=== PATIENT | male | born 1985 | race Caucasian/White ===

== ENCOUNTER 2023-07-27 19:23 | Emergency (ER) | payer OTHER, SELFPAY ==
[2023-07-27 19:24] VITALS: BP 120/74; PULSE 77; RESP 16; TEMP 36.3; O2SAT 100; BMI 30.5
--- NOTE | 2023-07-27 19:42 | RAD_ITS ---
STUDY: X-RAY - UNILATERAL RIBS ( LEFT ) WITH CHEST REASON FOR EXAM: Male, 37 years old. fall TECHNIQUE - RIBS: 5 view(s) of the ribs. TECHNIQUE - CHEST: PA COMPARISON: None. FINDINGS - RIBS: Normal visualized ribs without a demonstrated fracture. FINDINGS - CHEST: The lungs are clear and expanded. There is no demonstrated pleural abnormality. Normal size heart. Normal mediastinum and sylvie. Normal visualized pulmonary arteries. Normal visualized aortic arch and descending thoracic aorta. Normal visualized thoracic spine. Normal visualized ribs,, and shoulders. Mild left AC joint subluxation There is no demonstrated abnormality of the visualized soft tissue structures of the upper abdomen. RAD/Ribs Uni Min 3V w/PA Chest IMPRESSION: RIBS: Normal x-ray examination of the ribs. CHEST: Mild left AC joint subluxation. No acute cardiopulmonary pathology Electronically Signed: Sage Bridges MD at 20:19 EDT ,
--- NOTE | 2023-07-27 19:42 | RAD_ITS ---
STUDY: X-RAY - LEFT CLAVICLE REASON FOR EXAM: Male, 37 years old. fall TECHNIQUE: 2 view(s) of the clavicle. COMPARISON: None. FINDINGS: Normal clavicle. There is subluxation of the AC joint with widening of the coracoclavicular space which may be consistent with ligamentous injury.. This may be further assessed with MRI if indicated Normal visualized sternoclavicular articulation. Normal visualized pulmonary apex. RAD/Clavicle IMPRESSION: AC joint subluxation. Electronically Signed: Sage Bridges MD at 20:15 EDT ,
--- NOTE | 2023-07-27 22:13 | EDS_ITS ---
HPI History of Present Illness Chief Complaint: Upper Extremity Injury Informant: patient Narrative Narrative: Patient was thrown off of a horse, landing he thinks on his left side somehow. He complains of pain mostly in his left shoulder, he had some soreness in his left chest wall as well but it is not hurting as bad now. Denies any significant discomfort with taking breaths nor with movement and no dyspnea. He denies pain elsewhere. No loss of consciousness, nausea, vomiting, headache, vision change. PFSH PFSH Medical History Bacterial pneumonia Allergy/AdvReac Type Severity Reaction Status Date / Time No Known Allergies Allergy Verified 07/27/23 19:23 Surgical History (Updated 07/27/23 @ 22:10 by Deidre Javier) Hx of appendectomy Social History Smoking Status: Current every day smoker tobacco type: cigarettes ROS ROS ED Constitutional Constitutional ED: Denies chills or fever(s) Eyes Eyes: Denies change in vision or diplopia Cardiovascular Cardiovascular: Reports other Details: Left rib cage pain ; Denies chest pain Respiratory/Chest Respiratory/Chest: Denies dyspnea Gastrointestinal Gastrointestinal: Denies abdominal pain, nausea or vomiting Musculoskeletal Musculoskeletal: Reports extremity pain; Denies neck pain Integumentary Denies Abrasions, rash or wounds Neurologic Neurologic: Denies headache(s), paresthesias or weakness EXAM Physical Exam Const Vital Signs: 07/27/23 19:24 Temperature 97.3 F L Temperature Source Temporal Pulse Rate 77 Respiratory Rate 16 Blood Pressure 120/74 Blood Pressure Mean 89 Pulse Ox 100 Positive well nourished and well developed General Appearance ED: well developed and NAD HEENT normocephalic and atraumatic Eyes PERRL and EOMs intact bilaterally Neck full ROM and supple General: Negative for tenderness Chest Wall inspection of chest normal and palpation of chest normal Resp normal respiratory effort and clear to auscultation bilaterally Resp Narrative: Equal breath sounds bilateral Cardio regular rate, regular rhythm and no murmurs Rate: Negative for tachycardic Back/Spine normal ROM and normal to inspection Back/Spine Narrative: Mild tenderness in the left mid-low lateral rib cage without crepitance, step- off, flail. Extremity Extremity Narrative: Left shoulder minor deformity with elevation of the distal/lateral clavicle and tenderness there at the acromioclavicular joint. There is no gross instability of the clavicle here on exam. Limited range of motion of the shoulder due to pain, no proximal humeral tenderness. He has good range of motion without tenderness or signs of injury to the elbow, wrist, hand, and the other 3 extremities. There is no tenderness at the rest of the clavicle including the sternoclavicular joint. Neuro oriented x3, no focal motor deficits and no sensory deficits noted Sensorium / Orientation: alert Psych mental status grossly normal and thought process normal Skin no wounds Rashes: no rashes MDM MDM MDM Narrative Medical decision making narrative: 5 view x-ray series of the left rib cage with PA chest negative on my interpretation for any fracture or pneumothorax, radiology was in agreement. With regards to his left shoulder, 2 view x-ray of the clavicle was obtained and on my interpretation does show no fracture but there is elevation of the lateral clavicle consistent with a shoulder separation. Radiology was in agreement. Clinically this is more consistent with a type II injury, although I am not doing stress films here in the ER. Patient declines analgesics and is okay with a sling and [id number] medications and following up with orthopedics as an outpatient. Radiography Diagnostic Testing: Clinical Impression(s) from Imaging Studies Clavicle X-Ray 07/27/23 19:42 IMPRESSION: AC joint subluxation. Electronically Signed: Sage Bridges MD at 20:15 EDT , Ribs w/Chest X-Ray 07/27/23 19:42 IMPRESSION: RIBS: Normal x-ray examination of the ribs. CHEST: Mild left AC joint subluxation. No acute cardiopulmonary pathology Electronically Signed: Sage Bridges MD at 20:19 EDT , Discharge Plan Triage Chief Complaint: Upper Extremity Injury ED Provider: Jose Clarke Dx/Rx/DC Orders Clinical Impression: Separation of left acromioclavicular joint Instructions: Treatment for Shoulder Separation, ED Sling Primary Care Provider: NOT,DEFINED Referrals: Jamshid Deras MD [Med Staff - Active Staff] - (call for appt with first avail provider at [facility]) NOT,DEFINED [Primary Care Provider] - Disposition Disposition: Home, Self Care
== END 2023-07-27 22:49 | disposition home or self-care (01) ==
PROVIDERS: Emergency Provider Emergency Medicine; Visit Provider Emergency Medicine
DX: S43.102A Unspecified dislocation of left acromioclavicular joint, initial encounter (principal); F17.210 Nicotine dependence, cigarettes, uncomplicated; V80.918A Animal-rider injured in other transport accident, initial encounter; Z90.49 Acquired absence of other specified parts of digestive tract
CPT/HCPCS: 71101; 73000; 99283